=== PATIENT | female | born 1985 | race Caucasian/White ===

== ENCOUNTER 2017-07-05 13:07 | Emergency (ER) | payer MEDICAID ==
[2017-07-05 13:09] VITALS: BP 128/78; PULSE 95; RESP 12; TEMP 97.9; O2SAT 100
--- NOTE | 2017-07-05 14:29 | RADRPT ---
EXAM DATE/TIME: 07/05/2017 13:40 [place] COMPARISON: No previous studies available for comparison. INDICATIONS : Right knee pain. No known injury. MEDICAL HISTORY : None. SURGICAL HISTORY : None. ENCOUNTER: Initial ACUITY: 4 - 6 days PAIN SCORE: 8/10 LOCATION: Right knee, around patella FINDINGS: Four view examination of the right knee demonstrates no evidence of fracture or dislocation. Bony mi neralization is normal. The articular surfaces are intact. The suprapatellar soft tissues have a no rmal configuration. CONCLUSION: Unremarkable examination of the right knee. Leoncio Chisholm MD on July 05, 2017 at 14:27 Board Certified Radiologist. This report was verified electronically.
[2017-07-05] MEDS ORDERED: KETOROLAC TROMETHAMINE 60 MG/2 ML (IM) VIAL IM ONE (15:45)
--- NOTE | 2017-07-05 15:49 | PD ---
HPI Chief Complaint: Pain: Acute or Chronic Time Seen by Provider: 15:26 Travel History International Travel<30 days: No Contact w/Intl Traveler<30days: No Traveled to known affect area: No History of Present Illness HPI 32-year-old female presents to the emergency room for evaluation of right knee pain and swelling for the past 7 days. Patient states she has intermittent swelling and pain for the past several months. Reports pain is localized to the knee with radiation up and down the leg. Worse with extension. Denies fever, chills, nausea, vomiting. She has not taken anything for symptoms. Denies any specific trauma or injury. [facility] Social History Tobacco Use: Yes Allergies-Medications (Allergen,Severity, Reaction): Coded Allergies: erythromycin base (Verified Allergy, Unknown, 07/05/17) Review of Systems Except as stated in HPI: all other systems reviewed are Neg Physical Exam Narrative GENERAL: Well-nourished, well-developed female in no acute distress. Afebrile. Ambulatory. SKIN: Focused skin assessment warm/dry. Mild ecchymosis of the right knee. No erythema. Slight increased warmth of the right knee. HEAD: Normocephalic. EYES: No scleral icterus. No injection or drainage. NECK: Supple, trachea midline. No JVD or lymphadenopathy. CARDIOVASCULAR: Regular rate and rhythm without murmurs, gallops, or rubs. RESPIRATORY: Breath sounds equal bilaterally. No accessory muscle use. MUSCULOSKELETAL: No cyanosis. Moderate edema localized to the knee. Obvious effusion. Patient has full flexion but limited extension secondary to pain. 2 + dorsalis pedis pulse. No calf tenderness. Data Data Last Documented VS Vital Signs Date Time Temp Pulse Resp B/P (MAP) Pulse Ox O2 Delivery O2 Flow Rate FiO2 07/05/17 13:09 97.9 95 12 128/78 (95) 100 Orders Orders Knee, Complete (4vws) (07/05/17 ) Ketorolac Inj (Toradol Inj) (07/05/17 15:45) Crutches (07/05/17 15:39) Ari Bandage (07/05/17 15:39) MDM Medical Decision Making Medical Screen Exam Complete: Yes Emergency Medical Condition: Yes Medical Record Reviewed: Yes Differential Diagnosis Inflammatory arthritis, strain, internal derangement, sprain, fracture Narrative Course 32-year-old female with history of right knee pain and swelling presents to the emergency room for evaluation of the same. States this episode started 7 days ago. She denies any new trauma or injury. Pain is difficult to localize. Radiates upward and downward. Worse with extension. Physical exam reveals moderate to severe edema of the right knee with obvious effusion. Right lower extremity is neurovascularly intact with 2+ dorsalis pedis pulse. Patient can flex to 90 and extend to about 170. No suspicion for septic arthritis as the area is not erythematous and patient can flex the knee 90. She has been ambulatory. X-ray is negative. Patient was told she likely has inflammatory arthritis or internal derangement. Recommended Ari wrap and crutches. Told to follow up with PCP for outpatient MRI or aspiration. Told to return for worsening symptoms. She understands and agrees to plan. Diagnosis Primary Impression: Effusion, right knee Referrals: Primary Care Physician Additional Instructions: Take ibuprofen with food as directed, as needed for pain. Apply ice to the affected area for 20 minutes at a time, as needed for pain and swelling. Follow-up with a primary care physician. Return to the emergency room for worsening symptoms. Med/Other Pt SpecificInfo: Prescription(s) given Disposition: 01 DISCHARGE HOME Condition: Stable Eri Fisher Jul 05, 2017 15:49
[2017-07-05] MEDS ORDERED: BACL10TA PO (16:18)
[2017-07-05] MEDS ORDERED: MIRTA15 PO (16:18)
== END 2017-07-05 17:44 | disposition home or self-care (01) ==
LOC: NEPK 13:07
DX: M25.461 Effusion, right knee (principal); Z72.0 Tobacco use
CPT/HCPCS: 73564; 96372; 99285; E0113; J1885

== ENCOUNTER → 2018-01-17 | Outpatient (CLI) | payer MEDICAID ==
[~2018-01-17] MED LIST: BACL10TA PO; MIRTA15 PO
== END ==
LOC: HPND 09:06
PROVIDERS: ATTEND Obstetrics & Gynecology
DX: O99.89 Other specified diseases and conditions complicating pregnancy, childbirth and the puerperium (principal); Z36.82 Encounter for antenatal screening for nuchal translucency; O26.611 Liver and biliary tract disorders in pregnancy, first trimester; O99.321 Drug use complicating pregnancy, first trimester; O99.331 Smoking (tobacco) complicating pregnancy, first trimester; O09.891 Supervision of other high risk pregnancies, first trimester
CPT/HCPCS: 36415; 76813